=== PATIENT | female | born 1980 | race African-American/Black ===

== ENCOUNTER 2025-05-24 12:55 | Emergency (ER) | payer OTHER ==
[~2025-05-24] VITALS: Ht 162.6 cm; Wt 60.5 kg
[2025-05-24 12:58] VITALS: O2SAT 100
[2025-05-24 14:11] LABS: BASOPHILS % 0.4 % (0.0-2.0); EOSINOPHILS % 1.6 % (0.0-5.0); HEMATOCRIT. 42.2 % (36.0-48.0); HEMOGLOBIN. 14.3 g/dL (12.0-16.0); LYMPHOCYTES % 19.5 % (20.0-50.0); MEAN PLATELET VOLUME 9.1 fl (7.4-10.4); MONOCYTES % 8.4 % (2.0-8.0); NEUTROPHILS % 70.1 % (40.0-76.0); PLATELET 212 x1000/uL (130-400); RED BLOOD CELL COUNT 4.63 mill/uL (4.2-5.4); RED CELL DISTRIBUTION WIDTH 13.5 % (11.6-14.6)
[2025-05-24 14:27] LABS: CREATININE 0.7 mg/dL (0.6-1.0); ETHANOL BLOOD < 10 mg/dL (<10); UREA NITROGEN BLOOD 18 mg/dL (9-23)
[2025-05-24 14:28] LABS: ASPARTATE AMINOTRANSFERASE 28 IU/L (<34); TROPONIN I HIGH SENSITIVITY < 4 ng/L (3.0-34)
[2025-05-24 14:29] LABS: BILIRUBIN DIRECT 0.1 mg/dL (<=3.0); BILIRUBIN TOTAL 0.4 mg/dL (0.1-1.0); PROTEIN TOTAL 6.2 g/dL (6.0-8.3)
[2025-05-24 14:33] LABS: HCG SCREEN NEGATIVE
[2025-05-24 14:34] LABS: INR 1.0
[2025-05-24 15:20] VITALS: BP 126/81; PULSE 85; RESP 20; TEMP 36.7; O2SAT 100
[2025-05-24] MEDS ORDERED: IOHEXOL-350 100 ML BOTTLE ONE (19:27)
== END 2025-05-24 15:25 | disposition left against medical advice (07) ==
LOC: ER 12:55 → EDBEDREQTM 14:12 → EDBEDREQ 14:12 → ENRESERV 14:50 → CANRESERV 14:50 → CANBEDREQ 15:10 → ER 15:25
DX: R53.1 Weakness (principal); Z79.899 Other long term (current) drug therapy; Z86.73 Personal history of transient ischemic attack (TIA), and cerebral infarction without residual deficits; Z79.01 Long term (current) use of anticoagulants
CPT/HCPCS: 80076; 80048; 80320; 84703; 85025; 85610; 85730; 84484; 36415; 71045; 70496; 70498; 70450; 99291; Q9967; G0480